=== PATIENT | male | born 1950 | race Caucasian/White ===

== ENCOUNTER 2023-12-09 08:15 | Day surgery (SDC) | payer MEDICARE ==
[2023-12-09] VITALS (8 sets, daily range): BP systolic 128–156; BP diastolic 55–70; PULSE 64–92; TEMP 96.9
[~2023-12-09] VITALS: Ht 167.7 cm; Wt 100.1 kg
[~2023-12-09 08:15] MED LIST: LR 1,000 ML IV SCH
[2023-12-09] MEDS ORDERED: NS Flush 10 ML SYRINGE PRN ICA (08:45)
[2023-12-09] MEDS ORDERED: 1/2 NS 1,000 ML IV SCH (08:45)
[2023-12-09 08:51] LABS: HEMATOCRIT 44.8 % (42.0-52.0); HEMOGLOBIN 14.7 g/dl (13.5-18.0); MEAN CELL VOLUME 82 fl (80.0-100.0); MEAN CORPUSCULAR HEMOGLOBIN 27 pg (27-31); MEAN CORPUSCULAR HGB CONC 33 g/dl (33.0-37.0); PLATELET COUNT 319 K/mm3 (130-400); RED BLOOD COUNT 5.45 M/mm3 (4.20-5.60); REDCELL DISTRIBUTION WIDTH-CV 14.6 % (11.5-14.5)
[2023-12-09 08:57] LABS: PROTHROMBIN TIME 10.7 SECONDS (9.7-12.8)
[2023-12-09] MEDS ORDERED: NS Flush 10 ML SYRINGE BID ICA SCH (09:00)
[2023-12-09] MEDS ORDERED: CRESTOR40 MG PO (09:05)
[2023-12-09] MEDS ORDERED: ASPIRIN 32325 MG/TAB PO (09:05)
[2023-12-09] MEDS ORDERED: TOPROL XL 50MG50 MG PO (09:06)
[2023-12-09] MEDS ORDERED: EPA FISH OIL1 SGL PO (09:07)
[2023-12-09] MEDS ORDERED: NITROSTAT0.4 MG/TAB SL (09:07)
[2023-12-09] MEDS ORDERED: GLUCOPHAGE XR500 M1 PO (09:07)
[2023-12-09 09:08] LABS: CALCIUM 9.4 mg/dL (8.4-10.2); CREATININE, serum 1.06 mg/dL (0.72-1.25); POTASSIUM 4.2 mEq/L (3.5-4.5)
--- NOTE | 2023-12-09 10:35 | NUR ---
See Moderate Sedation Flow Sheet for complete documentation - At 1035 SpO2 dropped to 62% - MD Alex removed ESTHER probe - SpO2 did not improve - AmbuBag was utilized. At 1036 SpO2 was 90% - Oxymask reapplied at 15L/min - SpO2 remained stable.
[2023-12-09] MEDS ORDERED: ZEBETA 5MG5 MG PO (11:17)
[2023-12-09] MEDS ORDERED: FLONASEALLERGY NS (11:18)
--- NOTE | 2023-12-09 12:11 | NUR ---
Discharge instructions given to pt.Pt verbalizes understanding.Pt escorted out via wheelchair by this nurse.
== END 2023-12-10 08:26 ==
LOC: COL.CAR 08:15
PROVIDERS: Internal Medicine Cardiovascular Disease
DX: I35.0 Nonrheumatic aortic (valve) stenosis (principal); R06.00 Dyspnea, unspecified; R93.1 Abnormal findings on diagnostic imaging of heart and coronary circulation
CPT/HCPCS: J2704; J7120